=== PATIENT | male | born 2000 | race Caucasian/White ===

== ENCOUNTER 2025-01-25 11:31 | Emergency (ER) | payer MEDICAID, OTHER ==
[~2025-01-25] VITALS: Ht 182.9 cm; Wt 150.0 kg
[2025-01-25 11:41] VITALS: BP 175/100; PULSE 109; O2SAT 99
[2025-01-25] MEDS: HYDROcodone/acetaminophen 10/325mg tab PO ONE (12:02)
--- NOTE | 2025-01-25 12:52 | RADIOLOGY REPORT ---
INDICATION: severe back pain after lifting COMPARISON: None TECHNIQUE: 2 views of the lumbar spine were obtained. FINDINGS: The lumbar vertebral alignment is normal. The intervertebral disc spaces are well-maintained. No significant facet arthropathy is noted. No acute fracture, vertebral compression deformity or aggressive osseous lesions. The paravertebral soft tissues are grossly unremarkable. IMPRESSION: No acute fracture.
--- NOTE | 2025-01-25 13:03 | RADIOLOGY REPORT ---
EXAM: DI SACRUM COCCYX CLINICAL INDICATION: severe back pain TECHNIQUE: DI SACRUM COCCYX, 3 v Comparison: None FINDINGS/IMPRESSION: There is no evidence of acute fracture or dislocation. The visualized joint space is well maintained. The alignment is anatomical. There is no radiopaque foreign body. No evidence for sacral fusion is sacroiliitis.
--- NOTE | 2025-01-25 13:17 | Physician Documentation ---
History of Present Illness ~ Chief Complaint: Back Pain Stated Complaint: BACK PAIN Time Seen by MD: 12:48 Primary Medical Doctor: CHOLO Horton Patient is seen today with complaints of acute onset back pain started today at work. Patient states he has actually been moving a lot of heavy boxes at home states his back was kind of tired but then today at work he was lifting very light boxes consistent went to set them down and when he stood back up he felt a pop and immediate pain in his lower back. Patient denies any radiculopathy burning sensation or numbness or tingling down his lower extremities. Patient has no other concern or complaint at this time. Patient denies any saddle anesthesia or changes in bowel or bladder habits. Medication Reconciliation Allergies: Coded Allergies: No Known Allergies (Unverified , 01/25/25) Past Medical History Past Medical History: No Pertinent History Past Surgical History: noncontributory Alcohol Use: None Drug Use: none Lives with: Family Lives In: Home Review of Systems Constitutional: Denies: chills, fever, weakness Eyes: Denies: pain, blurred vision ENT: Denies: ear pain, nose pain, throat pain, mouth pain Respiratory: Denies: cough, shortness of breath Cardiovascular: Denies: chest pain, palpitations Gastrointestinal: Denies: abdominal pain, nausea, vomiting Genitourinary: Denies: burning, dysuria Male Genitalia: Denies: penile discharge, testicular pain Neurological: Denies: headache, dizziness Musculoskeletal: Denies: pain, swelling Integumentary: Denies: rash, lesions Allergic/Immunologic: Denies: hives, itching Hematologic/Lymphatic: Denies: no symptoms reported Psychiatric: Denies: depression, anxiety Physical Exam Physical Exam Vital Signs: Temperature: 97.9, Source: Temporal, Heart Rate: 109, Respiratory Rate: 16, BP: 175/100, Pulse Oximetry: 99, Weight: 150.000 Oxygen Flow Rate: 0 Physical Exam General: Awake and Alert, no acute distress. HEENT: Conjunctiva pink, Sclera clear, Mucus Membranes moist. Neck: Supple without masses and tenderness. Resp: Unlabored. Lungs clear to auscultation bilaterally. Heart: Regular Rate and rhythm, normal S1 and S2 without murmur, rub or gallop. Musculoskeletal: Patient on exam has significant decreased range of motion of the lumbar spine in all planes of motion. Patient is neurovascularly intact distally. Motor function and strength intact distally. Extremities: No cyanosis,clubbing or edema. Skin: Warm and Dry. Progress Results/Orders Results/Orders Completed Orders - GIRISH HUFFMAN Ketorolac Trometh 30mg/Ml Vial (Toradol (01/25/25 13:11) Medications Received in ER Medications (Trade) Dose Ordered Sig/Kayla Route PRN Reason Start Time Stop Time Status Last Admin Dose Admin ([place] 10/325mg tab) 1 tab ONCE ONCE PO 01/25/25 11:55 01/25/25 11:56 DC 01/25/25 12:02 1 TAB (Toradol inj. 30mg/ml) 30 mg ONCE STAT IM 01/25/25 13:11 01/25/25 13:16 DC 01/25/25 13:24 30 MG Vital Signs 01/25/25 01/25/25 01/25/25 11:41 12:02 13:24 Temp 97.9 Pulse 109 Resp 22 16 16 B/P (MAP) 175/100 Pulse Ox 99 O2 Flow Rate 0 EKG/XRAY/CT/US/VASC/MRI Bone/Soft Tissue X-Ray (Spine) : Additional Comment X-rays of coccyx and lumbar spine interpreted by myself today show no sign of acute fracture, bones in anatomic alignment, radiopaque foreign body. DIAGNOSTIC RADIOLOGY Patient: ANJELICA BANDA Medical Record: [id number] [facility] : 2000, Age: 24 Sex: Male Location: ER Patient Status: REG ER Service Date/Time: 01/25/25/ 1149 Ordering Physician: CHRIS MEJÍA [employer] Exam: SACRUM & COCCYX EXAM: DI SACRUM COCCYX CLINICAL INDICATION: severe back pain TECHNIQUE: DI SACRUM COCCYX, 3 v Comparison: None FINDINGS/IMPRESSION: There is no evidence of acute fracture or dislocation. The visualized joint space is well maintained. The alignment is anatomical. There is no radiopaque foreign body. No evidence for sacral fusion is sacroiliitis. Electronically Signed by:AMANDA STEPHENS MD Date & Time: 01/25/25 130 Dictated by: AMANDA STEPHENS MD Dictation date and time: 01/25/25 1301 Primary Care Provider: NO PRIMARY CARE PROVIDER cc: CHRIS MEJÍA [employer] ~ DIAGNOSTIC RADIOLOGY Patient: ANJELICA BANDA Medical Record: [id number] [facility] : 2000, Age: 24 Sex: Male Location: ER Patient Status: REG ER Service Date/Time: 01/25/25/ 1149 Ordering Physician: CHRIS MEJÍA NP Exam: LUMBAR SPINE LIMITED INDICATION: severe back pain after lifting COMPARISON: None TECHNIQUE: 2 views of the lumbar spine were obtained. FINDINGS: The lumbar vertebral alignment is normal. The intervertebral disc spaces are well-maintained. No significant facet arthropathy is noted. No acute fracture, vertebral compression deformity or aggressive osseous lesions. The paravertebral soft tissues are grossly unremarkable. IMPRESSION: No acute fracture. Electronically Signed by:IRENE MCKENZIE MD Date & Time: 01/25/25 125 Dictated by: IRENE MCKENZIE MD Dictation date and time: 01/25/25 125 Primary Care Provider: NO PRIMARY CARE PROVIDER cc: CHRIS MEJÍA [employer] ~ Medical Decision Making Findings Patient is seen today with complaints of acute onset back pain started today at work. Patient states he has actually been moving a lot of heavy boxes at home states his back was kind of tired but then today at work he was lifting very light boxes consistent went to set them down and when he stood back up he felt a pop and immediate pain in his lower back. Patient denies any radiculopathy burning sensation or numbness or tingling down his lower extremities. Patient has no other concern or complaint at this time. Patient denies any saddle anesthesia or changes in bowel or bladder habits. Patient was given [place] 10/325 mg one tab by mouth, Toradol 30 mg IM, in the ED today. Patient was given prescription for methocarbamol 750 mg one tab 3 times a day as needed for muscle spasm. Prescription of [place] 10/325 mg one tab twice a day for three days sent to patient's pharmacy. Patient will follow up with primary care in 2-5 days if no better as needed sooner for referral to physical therapy. Return to ED with any worsening, concerning or changing symptoms. Departure Disposition: HOME / SELF CARE / HOMELESS Impression: Primary Impression: Low back pain Qualified Codes: M54.50 - Low back pain, unspecified Additional Impression: Strain of lumbar region Qualified Codes: S39.012A - Strain of muscle, fascia and tendon of lower back, initial encounter Condition: Improved Discharge Instructions: Lumbosacral Strain Additional Instructions: Patient was given [place] 10/325 mg one tab by mouth, Toradol 30 mg IM, in the ED today. Patient was given prescription for methocarbamol 750 mg one tab 3 times a day as needed for muscle spasm. Prescription of [place] 10/325 mg one tab twice a day for three days sent to patient's pharmacy. Patient will follow up with primary care in 2-5 days if no better as needed sooner for referral to physical therapy. Return to ED with any worsening, concerning or changing symptoms. Referrals: NO PRIMARY CARE PROVIDER (PCP) Prescriptions Hydrocodone Bit/Acetaminophen (Hydrocodone-Apap 10-325 Tablet) 10mg/325mg Tablet 1 TAB PO Q12H PRN PRN for pain for 5 Days, #10 TAB Prov: GIRISH HUFFMAN 01/25/25 Methocarbamol (Methocarbamol) 750 Mg Tablet 1 TAB PO Q8H for 14 Days, #42 TAB 0 Refills Prov: GIRISH HUFFMAN 01/25/25 Signature Scribe Signature: No scribe Attestation: No scribe GIRISH HUFFMAN Jan 25, 2025 13:16
[2025-01-25 13:24] VITALS: RESP 16
[2025-01-25] MEDS: ketorolac trometh 30MG/ML vial 30 MG/ML VIAL IM STA (13:24)
[2025-01-25] MEDS ORDERED: METH-798 PO (13:49)
[2025-01-25] MEDS ORDERED: HYDR-3973 PO (13:49)
[2025-01-25 14:19] VITALS: TEMP 97.9
== END 2025-01-25 14:24 | disposition home or self-care (01) ==
LOC: ER 11:32
DX: S39.012A Strain of muscle, fascia and tendon of lower back, initial encounter (principal); X58.XXXA Exposure to other specified factors, initial encounter; Y93.89 Activity, other specified; Y92.009 Unspecified place in unspecified non-institutional (private) residence as the place of occurrence of the external cause; Y99.8 Other external cause status
CPT/HCPCS: 72100; 72220; 96372; 99284; J1885